=== PATIENT | male | born 1990 | race African-American/Black ===

== ENCOUNTER 2018-12-12 05:52 | Emergency (ER) | payer OTHER ==
[2018-12-12] MEDS ORDERED: ADACEL/BOOSTRIX VACCINE (DIPHTH/PERTUSS/ACELL/TETANUS)0.5ML SYR (90715) IM ONE (07:15)
[2018-12-12] MEDS ORDERED: ISOVUE-370 76% 100ML VIAL (Q9967) As Ordered ONE (07:52)
[2018-12-12] MEDS ORDERED: LIDOCAINE W/EPINEPHRINE 1% 20ML VIAL As Ordered ONE (08:23)
[2018-12-12 10:50] VITALS: BP 152/73
--- NOTE | 2018-12-12 10:52 | REP ---
CT BRAIN WITHOUT CONTRAST: CT brain performed without IV contrast. Ventricles are normal in size and position with no midline shift or mass effect. Munoz-white differentiation is well maintained. There is no evidence of acute intracranial hemorrhage. No extra-axial fluid collection is seen. No skull fracture is seen. IMPRESSION: Negative noncontrast CT brain. Electronically Signed by Kwesi Munoz MD 12/12/2018 04:27 P
--- NOTE | 2018-12-12 10:54 | REP ---
CT CERVICAL SPINE: CT cervical spine is performed in the axial plane with sagittal and coronal reconstruction images. There is no fracture or dislocation. Vertebral bodies are normal in height and are well aligned with normal cervical lordosis. There is no prevertebral soft tissue swelling. There is a small ligamentous calcification anteriorly at the C3-4 level. Disc spaces are well preserved. No abnormal density is seen in the spinal canal. IMPRESSION: No acute fracture or dislocation. Electronically Signed by Kwesi Munoz MD 12/12/2018 04:27 P
--- NOTE | 2018-12-12 10:56 | REP ---
CT CHEST WITH IV CONTRAST: TECHNIQUE: Axial contrast enhanced images from the thoracic inlet to the upper abdomen using 100 mL Isovue 370 intravenous contrast material with multiplanar reformations. The lungs show scattered tiny nodular areas of scarring bilaterally. No infiltrate or pneumothorax is seen. Thoracic aorta is normal in caliber with no aneurysm or dissection. Heart is normal in size. There is no mediastinal, hilar, or chest wall lymphadenopathy. There is no pleural or pericardial effusion. There is no fracture of the visualized osseous structures of the chest. IMPRESSION: No traumatic findings in the chest. No thoracic aortic dissection. No pneumothorax or pleural effusion. Visualized osseous structures are intact. There are scattered tiny nodular areas of scarring in the lungs. Electronically Signed by Kwesi Munoz MD 12/12/2018 04:28 P
--- NOTE | 2018-12-12 11:02 | REP ---
CT ABDOMEN AND PELVIS WITH IV CONTRAST: TECHNIQUE: Axial contrast enhanced images from the lung bases to the pubic symphysis using 100 mL Isovue 370 intravenous contrast material with multiplanar reformations. Liver, spleen, adrenals, pancreas, and kidneys are essentially unremarkable with no evidence of hematoma or laceration. There is a tiny cyst in the upper pole of the right kidney. There is mild dilatation of the renal pelvis bilaterally likely due to a significantly distended urinary bladder. There is no abdominal aortic aneurysm or dissection. No adenopathy is seen. There is no free air or free fluid. No bowel wall thickening is seen. The visualized osseous structures are intact with no acute fracture. 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 IMPRESSION: No posttraumatic findings. No hematoma, laceration, free fluid, and no evidence of acute fracture of the visualized osseous structures. Bladder is moderately distended and likely causes mildly dilatation of the renal pelvis bilaterally. Electronically Signed by Kwesi Munoz MD 12/12/2018 04:32 P
== END 2018-12-12 10:52 | disposition home or self-care (01) ==
LOC: M ED 05:52
DX: S20.219A Contusion of unspecified front wall of thorax, initial encounter (principal); S01.112A Laceration without foreign body of left eyelid and periocular area, initial encounter; V48.5XXA Car driver injured in noncollision transport accident in traffic accident, initial encounter; Y92.9 Unspecified place or not applicable; Y93.9 Activity, unspecified; Y99.9 Unspecified external cause status; F10.10 Alcohol abuse, uncomplicated; R91.8 Other nonspecific abnormal finding of lung field; Z88.8 Allergy status to other drugs, medicaments and biological substances
CPT/HCPCS: 12013; 70450; 71260; 72125; 74177; 90471; 90715; 99284; Q9967

== ENCOUNTER 2020-03-28 02:29 | Emergency (ER) | payer OTHER, SELFPAY ==
[~2020-03-28] VITALS: Ht 175.3 cm; Wt 75.9 kg
[2020-03-28] MEDS ORDERED: BOOSTRIX/ADACEL VACCINE (DIPHTH/PERTUSS/ACELL/TETANUS) 0.5ML SYR IM ONE (04:00)
[2020-03-28] MEDS ORDERED: LIDOCAINE W/EPINEPHRINE 1% 20ML VIAL SC ONE (04:00)
[2020-03-28] MEDS ORDERED: KETO10TAB PO (04:41)
[2020-03-28] MEDS ORDERED: KETOROLAC TROMETHAMINE 10 MG TAB PO ONE (04:45)
[2020-03-28] MEDS ORDERED: CEPHALEXIN 500 MG CAP PO ONE (04:45)
[2020-03-28 05:28] VITALS: BP 148/65
[2020-03-28] MEDS ORDERED: KEFL500C17 PO (05:36)
== END 2020-03-28 05:46 | disposition home or self-care (01) ==
LOC: M ED 02:29
DX: S81.831A Puncture wound without foreign body, right lower leg, initial encounter (principal); S71.132A Puncture wound without foreign body, left thigh, initial encounter; X99.1XXA Assault by knife, initial encounter; Y92.019 Unspecified place in single-family (private) house as the place of occurrence of the external cause; Y99.9 Unspecified external cause status